=== PATIENT | female | born 1995 | race Caucasian/White ===

== ENCOUNTER 2018-02-05 13:30 | Observation (INO) | payer MEDICAID ==
[2018-02-05 14:15] LABS: Appearance SLIGHTLY CLOUDY (CLEAR); Bilirubin NEGATIVE (NEGATIVE); Blood NEGATIVE Ery/ul (0-5); Glucose NEGATIVE (NEGATIVE); Ketones NEGATIVE (NEGATIVE); Leukocyte Esterase TRACE (NEGATIVE); Nitrite NEGATIVE (NEGATIVE); Protein,Urine Dip TRACE (Negative); Specific Gravity 1.025 (1.005-1.025); Urobilinogen NORMAL mg/dL (0-1)
[2018-02-05 14:16] LABS: Bacteria FEW /HPF (NEGATIVE); Epithelial Cells MODERATE /HPF (FEW); Mucus MODERATE /HPF (NEGATIVE); RBC 0-2 /HPF (0-2)
[2018-02-05 14:28] LABS: Amphetamine,Urine NEGATIVE (NEGATIVE); Barbiturate,Urine NEGATIVE (NEGATIVE); Benzodiazepine,Urine NEGATIVE (NEGATIVE); Cocaine,Urine NEGATIVE (NEGATIVE); Methadone,Urine NEGATIVE (NEGATIVE); Opiate,Urine NEGATIVE (NEGATIVE); PCP,Urine NEGATIVE (NEGATIVE); THC,Urine NEGATIVE (NEGATIVE)
[2018-02-05 14:43] VITALS: PULSE 82
[2018-02-05 15:54] VITALS: BP 107/62
== END 2018-02-05 15:54 | disposition home or self-care (01) ==
LOC: OB 13:30
PROVIDERS: ADMIT Family Medicine; ATTEND Family Medicine
DX: Z34.83 Encounter for supervision of other normal pregnancy, third trimester (principal)
CPT/HCPCS: 80307; 81000; 87086; G0378

== ENCOUNTER 2018-03-06 10:58 | Observation (INO) | payer MEDICAID ==
[2018-03-06 11:41] VITALS: BP 114/69
[2018-03-06 12:38] LABS: Appearance CLEAR (CLEAR); Bilirubin NEGATIVE (NEGATIVE); Blood SMALL Ery/ul (0-5); Glucose NEGATIVE (NEGATIVE); Ketones NEGATIVE (NEGATIVE); Leukocyte Esterase NEGATIVE (NEGATIVE); Nitrite NEGATIVE (NEGATIVE); Protein,Urine Dip NEGATIVE (Negative); Specific Gravity 1.026 (1.005-1.025); Urobilinogen 2 mg/dL (0-1)
== END 2018-03-06 13:50 | disposition home or self-care (01) ==
LOC: OB 10:58
PROVIDERS: ADMIT Family Medicine; ATTEND Family Medicine
DX: Z34.83 Encounter for supervision of other normal pregnancy, third trimester (principal)
CPT/HCPCS: 81001; G0378

== ENCOUNTER 2018-03-14 15:41 | Observation (INO) | payer MEDICAID ==
[2018-03-14 16:34] LABS: Appearance SLIGHTLY CLOUDY (CLEAR); Bilirubin NEGATIVE (NEGATIVE); Blood NEGATIVE Ery/ul (0-5); Glucose NEGATIVE (NEGATIVE); Ketones NEGATIVE (NEGATIVE); Leukocyte Esterase NEGATIVE (NEGATIVE); Nitrite NEGATIVE (NEGATIVE); Protein,Urine Dip 30 (Negative); Specific Gravity 1.027 (1.005-1.025); Urobilinogen 2 mg/dL (0-1)
[2018-03-14 16:45] LABS: Hematocrit 32.3 % (35-47); Hemoglobin 10.5 gm/dl (12.0-16.0); Mean Cell Volume 91.5 fl (78-100); Mean Corpuscular Hemoglobin 29.7 pg (26-32); Mean Corpuscular Hgb Concent. 32.5 g/dl (32-36); Mean Platelet Volume 10.7 fl (6-9.5); Platelet Count 247 K/mm3 (150-450); Red Blood Count 3.53 M/mm3 (4.1-5.4); Red Cell Distribution Width 13.8 % (11.5-14.0); White Blood Count 10.1 K/mm3 (4.0-10.5)
[2018-03-14 16:46] LABS: Amphetamine,Urine NEGATIVE (NEGATIVE); Barbiturate,Urine NEGATIVE (NEGATIVE); Benzodiazepine,Urine NEGATIVE (NEGATIVE); Cocaine,Urine NEGATIVE (NEGATIVE); Methadone,Urine NEGATIVE (NEGATIVE); Opiate,Urine NEGATIVE (NEGATIVE); PCP,Urine NEGATIVE (NEGATIVE); THC,Urine NEGATIVE (NEGATIVE)
[2018-03-14 17:03] LABS: ALBUMIN 3.6 g/dL (3.5-5.0); ALKALINE PHOSPHATASE 143 U/L (38-126); ANION GAP 12.8 MEQ/L (5-15); BLOOD UREA NITROGEN 14 mg/dL (7-17); CHLORIDE 104 mmol/L (98-107); Calcium 8.9 mg/dL (8.4-10.2); Carbon Dioxide 24 mmol/L (22-30); Creatinine 1 0.69 mg/dL (0.52-1.04); Glucose 86 mg/dL (74-106); Potassium 4.4 mmol/L (3.5-5.1); SGOT/AST 15 U/L (14-36); SGPT/ALT 10 U/L (0-35); SODIUM 136 mmol/L (137-145); Total Protein 6.6 g/dL (6.3-8.2)
[2018-03-14] MEDS ORDERED: Lactated Ringers 1,000 ML IV ONE ×2 (17:27→17:38)
[2018-03-14 17:56] LABS: BAND 3 % (0.0-2.0); Eosinophil 1 % (0.00-3.0); Lymphocytes 18 % (24-44); Monocyte 2 % (0.0-12.0); Neutrophils 76 % (36.0-66.0); Platelet Estimate NORMAL (NORMAL); Total Cells Counted 100
[2018-03-14 20:58] VITALS: BP 106/61; PULSE 69
== END 2018-03-14 20:15 | disposition home or self-care (01) ==
LOC: OB 15:41
PROVIDERS: ADMIT Family Medicine; ATTEND Family Medicine
DX: Z34.83 Encounter for supervision of other normal pregnancy, third trimester (principal)
CPT/HCPCS: 36415; 80053; 80307; 81001; 82962; 85025; G0378

== ENCOUNTER 2018-03-24 12:08 | Inpatient (IN) | payer MEDICAID ==
[2018-03-24] MEDS ORDERED: PITOCIN 30 UNITS/ LR 500 ML 500 ML IV SCH (12:30)
[2018-03-24] MEDS ORDERED: XYLOCAINE 1% HCL 20 ML MDV IJ PRN (12:30)
[2018-03-24] MEDS ORDERED: Lactated Ringers 1,000 ML IV SCH (12:30)
[2018-03-24 15:06] LABS: Hematocrit 31.2 % (35-47); Mean Corpuscular Hgb Concent. 32.1 g/dl (32-36); Mean Platelet Volume 11.3 fl (6-9.5); Platelet Count 219 K/mm3 (150-450); Red Blood Count 3.43 M/mm3 (4.1-5.4); Red Cell Distribution Width 13.9 % (11.5-14.0); White Blood Count 9.4 K/mm3 (4.0-10.5)
[2018-03-24 15:07] LABS: Mean Corpuscular Hemoglobin 29.1 pg (26-32)
[2018-03-24 15:29] LABS: Lymphocytes 17 % (24-44); Neutrophils 83 % (36.0-66.0); Total Cells Counted 100; Toxic Granulation 1+
[2018-03-24 15:30] LABS: Platelet Estimate NORMAL (NORMAL)
[2018-03-24 16:01] LABS: Amphetamine,Urine NEGATIVE (NEGATIVE); Barbiturate,Urine NEGATIVE (NEGATIVE); Benzodiazepine,Urine NEGATIVE (NEGATIVE); Cocaine,Urine NEGATIVE (NEGATIVE); Methadone,Urine NEGATIVE (NEGATIVE); Opiate,Urine NEGATIVE (NEGATIVE); PCP,Urine NEGATIVE (NEGATIVE); THC,Urine NEGATIVE (NEGATIVE)
[2018-03-25] MEDS ORDERED: PROTONIX 40 MG IV IV ONE (01:08)
[2018-03-25] MEDS ORDERED: CORTISONE 1% CREAM TP PRN (01:37)
[2018-03-25] MEDS ORDERED: NORCO 5/325 MG PO PRN (01:37)
[2018-03-25] MEDS ORDERED: Dulcolax 10 MG SUPP PR PRN (01:37)
[2018-03-25] MEDS ORDERED: Dermoplast Spray TP PRN (01:37)
[2018-03-25] MEDS ORDERED: Mylicon 80MG PO PRN (01:37)
[2018-03-25] MEDS ORDERED: Anucort-HC SUPPOSITORY PR PRN (01:37)
[2018-03-25] MEDS ORDERED: LANSINOH 40 GM TOP PRN (01:37)
[2018-03-25] MEDS ORDERED: TORAdol 30 mg Injection IV ONE (01:48)
[2018-03-25] MEDS: TYLENOL EXTRA STRENGTH 500 MG PO PRN ×4 (02:40→23:27)
[2018-03-25] MEDS: MOTRIN 400 MG PO PRN ×3 (06:40→20:14)
[2018-03-25] MEDS: Colace 100 MG PO SCH ×2 (09:18→18:28)
[2018-03-25] MEDS: FERREX 150 PO SCH ×2 (09:18→18:29)
[2018-03-25] MEDS: Protonix 20MG Tablet PO SCH ×2 (12:56→12:58)
[2018-03-25 15:46] LABS: Hematocrit 30.5 % (35-47); Hemoglobin 9.7 gm/dl (12.0-16.0); Mean Cell Volume 91.6 fl (78-100); Mean Corpuscular Hemoglobin 29.1 pg (26-32); Mean Corpuscular Hgb Concent. 31.8 g/dl (32-36); Mean Platelet Volume 10.9 fl (6-9.5); Platelet Count 202 K/mm3 (150-450); Red Blood Count 3.33 M/mm3 (4.1-5.4); Red Cell Distribution Width 13.9 % (11.5-14.0); White Blood Count 11.2 K/mm3 (4.0-10.5)
[2018-03-25 17:50] LABS: ANISOCYTOSIS 1+; Eosinophil 1 % (0.00-3.0); Lymphocytes 12 % (24-44); Monocyte 5 % (0.0-12.0); Neutrophils 82 % (36.0-66.0); Platelet Estimate NORMAL (NORMAL); Polychromasia RARE; Total Cells Counted 100
[2018-03-26] MEDS: MOTRIN 400 MG PO PRN (03:01)
[2018-03-26] MEDS: TYLENOL EXTRA STRENGTH 500 MG PO PRN (06:58)
--- NOTE | 2018-03-26 08:57 | PCM.DS ---
Discharge Summary Date of Admission: 03/24/18 12:08 Admitting Physician: SYDNEE AC Primary Care Provider: SYDNEE AC Allergies Allergies Sulfa (Sulfonamide Antibiotics) Allergy (Verified 03/14/18 16:13) Hospital Summary - Hospital Course Hospital Course: patient delivered at term via with Dr Ac, no complications. is going well, well bonded with baby. - Vitals & Intake/Output Vital Signs: Vital Signs Temperature 97.9 F 03/26/18 02:00 Pulse Rate 75 03/26/18 02:00 Respiratory Rate 18 03/26/18 02:00 Blood Pressure 106/56 03/26/18 02:00 O2 Sat by Pulse Oximetry Intake & Output: Intake & Output 03/23/18 03/24/18 03/25/18 03/26/18 11:59 11:59 11:59 11:59 Weight 102.058 kg - Lab Result Diagrams: 03/25/18 15:42 Lab Results-Last 24 Hrs: Lab Results-Last 24 Hours 03/25/18 Range/Units 15:42 WBC 11.2 H (4.0-10.5) K/mm3 RBC 3.33 L (4.1-5.4) M/mm3 Hgb 9.7 L (12.0-16.0) gm/dl Hct 30.5 L (35-47) % MCV 91.6 (78-100) fl MCH 29.1 (26-32) pg MCHC 31.8 L (32-36) g/dl RDW 13.9 (11.5-14.0) % Plt Count 202 (150-450) K/mm3 MPV 10.9 H (6-9.5) fl Segmented Neutrophils 82 H (36.0-66.0) % Lymphocytes (Manual) 12 L (24-44) % Monocytes (Manual) 5 (0.0-12.0) % Eosinophils (Manual) 1 (0.00-3.0) % Platelet Estimate NORMAL (NORMAL) RBC Morphology ABNORMAL Polychromasia RARE Anisocytosis 1+ - Procedures and Test Procedures and Tests throughout Hospitalization: Therapy Orders & Screens 03/25/18 01:41 Standby STAT Comment: Diagnosis: LABOR Discharge Exam General Appearance: no apparent distress, alert Skin Exam: normal color, warm, dry Respiratory Exam: normal breath sounds, lungs clear, No respiratory distress Cardiovascular Exam: regular rate/rhythm, normal heart sounds Gastrointestinal/Abdomen Exam: soft, No tenderness, No mass Extremity Exam: normal inspection, normal range of motion Final Diagnosis/Problem List - Final Discharge Diagnosis/Problem (1) Vaginal delivery Current Visit: No Status: Acute - Discharge Disposition: Home, Self-Care Condition: Stable Prescriptions: Continue Ranitidine HCl [Zantac] 1 cap PO DAILY Follow up with: SYDNEE AC [Primary Care Provider] - 1 Week
[2018-03-26 11:45] VITALS: BP 110/75; PULSE 99
== END 2018-03-26 10:58 | disposition home or self-care (01) | DRG 807 ==
LOC: OBSVTOIN 12:08 → OB 12:08
PROVIDERS: ADMIT Family Medicine; ATTEND Family Medicine
PROC: 10E0XZZ Delivery of Products of Conception, External Approach (ICD-10-PCS; principal; 2018-03-25)
DX: O80 Encounter for full-term uncomplicated delivery (principal); Z37.0 Single live birth; Z3A.39 39 weeks gestation of pregnancy
CPT/HCPCS: 36415; 80307; 83986; 85025; 94799; G0378; J1885; J2590; A9270-GY

== ENCOUNTER 2020-01-05 13:19 | Observation (INO) | payer OTHER ==
[2020-01-05 13:51] LABS: Hematocrit 31.6 % (35-47); Mean Cell Volume 95.2 fl (78-100); Mean Corpuscular Hemoglobin 30.1 pg (26-32); Mean Corpuscular Hgb Concent. 31.6 g/dl (32-36); Mean Platelet Volume 10.7 fl (7.5-11.0); Platelet Count 230 K/mm3 (150-450); Red Blood Count 3.32 M/mm3 (4.1-5.4); White Blood Count 10.6 K/mm3 (4.0-10.5)
[2020-01-05 13:54] VITALS: BP 124/60; PULSE 74
[2020-01-05 13:55] LABS: Appearance SLIGHTLY CLOUDY (CLEAR); Bacteria RARE /HPF (NEGATIVE); Bilirubin NEGATIVE (NEGATIVE); Blood NEGATIVE Ery/ul (0-5); Epithelial Cells RARE /HPF (FEW); Glucose NEGATIVE (NEGATIVE); Ketones NEGATIVE (NEGATIVE); Leukocyte Esterase NEGATIVE (NEGATIVE); Mucus SLIGHT /HPF (NEGATIVE); Nitrite NEGATIVE (NEGATIVE); Protein,Urine Dip NEGATIVE (Negative); Specific Gravity 1.028 (1.005-1.025); Urobilinogen 4 mg/dL (0-1)
[2020-01-05 14:15] LABS: ALBUMIN 3.5 g/dL (3.5-5.0); ALKALINE PHOSPHATASE 69 U/L (38-126); ANION GAP 10.7 MEQ/L (5-15); BLOOD UREA NITROGEN 10 mg/dL (7-17); CHLORIDE 104 mmol/L (98-107); Calcium 8.9 mg/dL (8.4-10.2); Carbon Dioxide 24 mmol/L (22-30); Creatinine 1 0.64 mg/dL (0.52-1.04); Glucose 83 mg/dL (74-106); Potassium 4.2 mmol/L (3.5-5.1); SGOT/AST 15 U/L (14-36); SGPT/ALT 9 U/L (0-35); SODIUM 135 mmol/L (137-145); Total Protein 6.7 g/dL (6.3-8.2)
[2020-01-05 14:31] LABS: Amphetamine,Urine NEGATIVE (NEGATIVE); Barbiturate,Urine NEGATIVE (NEGATIVE); Benzodiazepine,Urine NEGATIVE (NEGATIVE); Cocaine,Urine NEGATIVE (NEGATIVE); Methadone,Urine NEGATIVE (NEGATIVE); Opiate,Urine NEGATIVE (NEGATIVE); PCP,Urine NEGATIVE (NEGATIVE); THC,Urine NEGATIVE (NEGATIVE)
[2020-01-05 14:40] LABS: BAND 1 % (0.0-2.0); Basophil 1 % (0.0-1.0); Lymphocytes 10 % (24-44); Monocyte 5 % (0.0-12.0); Neutrophils 83 % (36.0-66.0); Platelet Estimate NORMAL (NORMAL); Total Cells Counted 100; Toxic Granulation 1+
[2020-01-05] MEDS ORDERED: Lactated Ringers 1,000 ML IV ONE (14:56)
[2020-01-05] MEDS ORDERED: ROCEPHIN 1 Gm-D5w 50 ml Bag** 1 G/50 ML IVPB IV ONE (15:02)
--- NOTE | 2020-01-05 15:04 | XRAY ---
Indication: Abdomen pressure. Two-dimensional OB ultrasound performed. Comparison: December 08, 2019. Again there is a single viable intrauterine in cephalic presentation. heart rate 159 bpm. anatomy previously documented. Visualized stomach and bladder are unremarkable. Again posterior placenta without abruption/previa. Cervical length is 5.4 cm. BPD measures 6.13 cm corresponding to 24 weeks 6 days. HC measures 21.87 cm corresponding to 23 weeks 6 days. AC measures 19.69 cm corresponding to 24 weeks 3 days. FL measures 4.34 cm corresponding to 24 weeks 2 days. DANIEL is 12.5 cm. Impression: Again single viable intrauterine with mean gestational age 24 weeks 3 days. Normal progression of . No new or acute findings.
== END 2020-01-05 16:30 | disposition home or self-care (01) ==
LOC: OB 13:19
PROVIDERS: ADMIT Family Medicine; ATTEND Family Medicine
DX: Z34.82 Encounter for supervision of other normal pregnancy, second trimester (principal)
CPT/HCPCS: 36415; 76816; 80053; 80307; 81001; 85025; 87086; G0378; J0696

== ENCOUNTER 2020-03-01 22:05 | Observation (INO) | payer OTHER ==
[2020-03-01 22:40] LABS: Appearance CLEAR (CLEAR); Bilirubin NEGATIVE (NEGATIVE); Blood NEGATIVE Ery/ul (0-5); Epithelial Cells RARE /HPF (FEW); Glucose NEGATIVE (NEGATIVE); Hyaline Casts 0-2 /LPF (0-2); Ketones NEGATIVE (NEGATIVE); Leukocyte Esterase TRACE (NEGATIVE); Nitrite NEGATIVE (NEGATIVE); Protein,Urine Dip NEGATIVE (Negative); Specific Gravity 1.008 (1.005-1.025); Urobilinogen NEGATIVE mg/dL (0-1)
[2020-03-01 22:42] LABS: Hematocrit 31.3 % (35-47); Hemoglobin 9.8 gm/dl (12.0-16.0); Mean Cell Volume 92.3 fl (78-100); Mean Corpuscular Hemoglobin 28.9 pg (26-32); Mean Corpuscular Hgb Concent. 31.3 g/dl (32-36); Mean Platelet Volume 10.7 fl (7.5-11.0); Platelet Count 223 K/mm3 (150-450); Red Blood Count 3.39 M/mm3 (4.1-5.4); Red Cell Distribution Width 14.4 % (11.5-14.0); White Blood Count 10.6 K/mm3 (4.0-10.5)
[2020-03-01 22:57] LABS: ALBUMIN 3.3 g/dL (3.5-5.0); ALKALINE PHOSPHATASE 87 U/L (38-126); ANION GAP 7.9 MEQ/L (5-15); BLOOD UREA NITROGEN 10 mg/dL (7-17); CHLORIDE 106 mmol/L (98-107); Calcium 8.8 mg/dL (8.4-10.2); Carbon Dioxide 25 mmol/L (22-30); Creatinine 1 0.71 mg/dL (0.52-1.04); EST GLOMERULAR FILTRATION RATE > 60.0 ML/MIN; Glucose 88 mg/dL (74-106); Potassium 4.5 mmol/L (3.5-5.1); SGOT/AST 15 U/L (14-36); SGPT/ALT 9 U/L (0-35); SODIUM 135 mmol/L (137-145); Total Protein 6.4 g/dL (6.3-8.2); Uric Acid 3.7 mg/dL (2.6-6.0)
[2020-03-01 23:22] VITALS: O2SAT 98
[2020-03-01 23:49] LABS: Basophil 1 % (0.0-1.0); Eosinophil 1 % (0.00-3.0); Lymphocytes 23 % (24-44); Monocyte 7 % (0.0-12.0); Neutrophils 68 % (36.0-66.0); Platelet Estimate NORMAL (NORMAL); Total Cells Counted 100
[2020-03-02 08:04] VITALS: BP 98/53; PULSE 80
[2020-03-02] MEDS ORDERED: TYLENOL 325 MG PO PRN (08:12)
== END 2020-03-02 09:45 | disposition home or self-care (01) ==
LOC: OB 22:05
PROVIDERS: ADMIT Family Medicine; ATTEND Family Medicine
DX: Z34.83 Encounter for supervision of other normal pregnancy, third trimester (principal); Z3A.32 32 weeks gestation of pregnancy
CPT/HCPCS: 36415; 80053; 81001; 84550; 85025; G0378; A9270-GY

== ENCOUNTER 2020-03-22 12:43 | Observation (INO) | payer OTHER ==
[2020-03-22 13:43] VITALS: BP 115/65; PULSE 97; O2SAT 99
[2020-03-22 14:41] LABS: Hematocrit 31.9 % (35-47); Mean Cell Volume 92.2 fl (78-100); Mean Corpuscular Hemoglobin 28.9 pg (26-32); Mean Corpuscular Hgb Concent. 31.3 g/dl (32-36); Mean Platelet Volume 10.7 fl (7.5-11.0); Platelet Count 213 K/mm3 (150-450); Red Blood Count 3.46 M/mm3 (4.1-5.4); Red Cell Distribution Width 15.2 % (11.5-14.0); White Blood Count 8.4 K/mm3 (4.0-10.5)
[2020-03-22 14:50] LABS: ALBUMIN 3.2 g/dL (3.5-5.0); ALKALINE PHOSPHATASE 106 U/L (38-126); ANION GAP 9.5 MEQ/L (5-15); BLOOD UREA NITROGEN 9 mg/dL (7-17); CHLORIDE 105 mmol/L (98-107); Calcium 8.5 mg/dL (8.4-10.2); Carbon Dioxide 22 mmol/L (22-30); Creatinine 1 0.78 mg/dL (0.52-1.04); EST GLOMERULAR FILTRATION RATE > 60.0 ML/MIN; Glucose 106 mg/dL (74-106); Potassium 4.3 mmol/L (3.5-5.1); SGOT/AST 18 U/L (14-36); SGPT/ALT 11 U/L (0-35); SODIUM 132 mmol/L (137-145); Total Protein 6.2 g/dL (6.3-8.2)
[2020-03-22 15:15] LABS: Lymphocytes 14 % (24-44); Monocyte 7 % (0.0-12.0); Neutrophils 79 % (36.0-66.0); Platelet Estimate NORMAL (NORMAL); Total Cells Counted 100
[2020-03-22 15:16] LABS: Absolute Neutrophil Ct (ANC) 6.75 (1.4-6.9)
== END 2020-03-22 15:07 | disposition home or self-care (01) ==
LOC: OB 12:44
PROVIDERS: ADMIT Family Medicine; ATTEND Family Medicine
DX: Z34.83 Encounter for supervision of other normal pregnancy, third trimester (principal); Z3A.35 35 weeks gestation of pregnancy
CPT/HCPCS: 36415; 80053; 81003; 85025; G0378

== ENCOUNTER 2020-03-24 20:10 | Observation (INO) | payer OTHER ==
[2020-03-24 20:43] LABS: Appearance SLIGHTLY CLOUDY (CLEAR); Bilirubin NEGATIVE (NEGATIVE); Blood NEGATIVE Ery/ul (0-5); Epithelial Cells RARE /HPF (FEW); Glucose NEGATIVE (NEGATIVE); Ketones NEGATIVE (NEGATIVE); Leukocyte Esterase SMALL (NEGATIVE); Mucus SLIGHT /HPF (NEGATIVE); Nitrite NEGATIVE (NEGATIVE); Protein,Urine Dip 30 (Negative); RBC 0-2 /HPF (0-2); Specific Gravity 1.025 (1.005-1.025); Urobilinogen 4 mg/dL (0-1)
[2020-03-24] MEDS ORDERED: ROCEPHIN 1 Gm-D5w 50 ml Bag** 1 G/50 ML IVPB IV ONE (22:13)
[2020-03-24] MEDS ORDERED: Lactated Ringers 1,000 ML IV ONE ×2 (22:13→22:15)
[2020-03-24 23:29] VITALS: BP 118/67; PULSE 90; O2SAT 100
[2020-03-25] MEDS ORDERED: ROCEPHIN 1 Gm-D5w 50 ml Bag** 1 G/50 ML IVPB IV SCH (10:00)
== END 2020-03-24 23:55 | disposition home or self-care (01) ==
LOC: OB 20:10
PROVIDERS: ADMIT Family Medicine; ATTEND Family Medicine
DX: Z34.83 Encounter for supervision of other normal pregnancy, third trimester (principal); Z3A.35 35 weeks gestation of pregnancy
CPT/HCPCS: 81001; 84112; 87086; G0378; J0696

== ENCOUNTER 2020-04-12 02:10 | Inpatient (IN) | payer OTHER ==
[2020-04-12 13:05] LABS: Appearance SLIGHTLY CLOUDY (CLEAR); Bacteria RARE /HPF (NEGATIVE); Bilirubin NEGATIVE (NEGATIVE); Blood NEGATIVE Ery/ul (0-5); Epithelial Cells FEW /HPF (FEW); Glucose NEGATIVE (NEGATIVE); Hyaline Casts 0-2 /LPF (0-2); Ketones NEGATIVE (NEGATIVE); Leukocyte Esterase MODERATE (NEGATIVE); Mucus SLIGHT /HPF (NEGATIVE); Nitrite NEGATIVE (NEGATIVE); Protein,Urine Dip 30 (Negative); RBC 0-2 /HPF (0-2); Specific Gravity 1.024 (1.005-1.025); Urobilinogen NEGATIVE mg/dL (0-1)
[2020-04-12 13:14] LABS: Amphetamine,Urine NEGATIVE (NEGATIVE); Barbiturate,Urine NEGATIVE (NEGATIVE); Benzodiazepine,Urine NEGATIVE (NEGATIVE); Cocaine,Urine NEGATIVE (NEGATIVE); Methadone,Urine NEGATIVE (NEGATIVE); Opiate,Urine NEGATIVE (NEGATIVE); PCP,Urine NEGATIVE (NEGATIVE); THC,Urine NEGATIVE (NEGATIVE)
[2020-04-12 13:34] LABS: Hematocrit 32.8 % (35-47); Hemoglobin 10.1 gm/dl (12.0-16.0); Mean Cell Volume 91.9 fl (78-100); Mean Corpuscular Hemoglobin 28.3 pg (26-32); Mean Corpuscular Hgb Concent. 30.8 g/dl (32-36); Mean Platelet Volume 11.1 fl (7.5-11.0); Platelet Count 217 K/mm3 (150-450); Red Blood Count 3.57 M/mm3 (4.1-5.4); Red Cell Distribution Width 15.4 % (11.5-14.0); White Blood Count 9.3 K/mm3 (4.0-10.5)
[2020-04-12 13:44] LABS: ALBUMIN 3.3 g/dL (3.5-5.0); ALKALINE PHOSPHATASE 122 U/L (38-126); ANION GAP 7.7 MEQ/L (5-15); BLOOD UREA NITROGEN 13 mg/dL (7-17); CHLORIDE 107 mmol/L (98-107); Calcium 8.8 mg/dL (8.4-10.2); Carbon Dioxide 23 mmol/L (22-30); Creatinine 1 0.88 mg/dL (0.52-1.04); EST GLOMERULAR FILTRATION RATE > 60.0 ML/MIN; Glucose 98 mg/dL (74-106); Potassium 4.3 mmol/L (3.5-5.1); SGOT/AST 20 U/L (14-36); SGPT/ALT 13 U/L (0-35); SODIUM 133 mmol/L (137-145); Total Protein 6.2 g/dL (6.3-8.2); Uric Acid 5.2 mg/dL (2.6-6.0)
[2020-04-12 14:34] LABS: Eosinophil 1 % (0.00-3.0); Lymphocytes 23 % (24-44); Monocyte 2 % (0.0-12.0); Neutrophils 74 % (36.0-66.0); Total Cells Counted 100
[2020-04-12 14:40] LABS: Platelet Estimate NORMAL (NORMAL)
[2020-04-12 19:32] LABS: Creatinine, Urine Random 147.8 mg/dl (30-125)
[2020-04-12] MEDS ORDERED: Zofran 4 MG/2 ML VIAL IV PRN (20:21)
[2020-04-12] MEDS ORDERED: BRETHINE 1 MG/ML SQ PRN (20:21)
[2020-04-12] MEDS ORDERED: Nubain 10 MG/ML IV PRN (20:21)
[2020-04-12] MEDS ORDERED: XYLOCAINE 1% HCL 20 ML MDV IJ PRN (20:21)
[2020-04-12] MEDS ORDERED: PITOCIN 30 UNITS/ LR 500 ML 30 UNITS/500 ML IV.SOLN. IV SCH (20:30)
[2020-04-12] MEDS: TYLENOL EXTRA STRENGTH 500 MG PO PRN (21:15)
[2020-04-12] MEDS ORDERED: Cervidil 10 MG VAG SCH (22:00)
[2020-04-12] MEDS ORDERED: Tums EX 750 MG PO PRN (22:32)
[2020-04-12] MEDS: Pepcid 20 MG PO PRN (22:48)
[2020-04-13] MEDS ORDERED: Lactated Ringers 1,000 ML IV SCH
[2020-04-13] MEDS ORDERED: NORCO 5/325 MG PO PRN (03:42)
[2020-04-13] MEDS ORDERED: LANSINOH 40 GM TOP PRN (03:42)
[2020-04-13] MEDS ORDERED: Anucort-HC SUPPOSITORY PR PRN (03:42)
[2020-04-13] MEDS ORDERED: Mylicon 80MG PO PRN (03:42)
[2020-04-13] MEDS ORDERED: Dermoplast Spray TP PRN (03:42)
[2020-04-13] MEDS ORDERED: CORTISONE 1% CREAM TP PRN (03:42)
[2020-04-13] MEDS ORDERED: TUCKS TP PRN (03:42)
[2020-04-13] MEDS ORDERED: Dulcolax 10 MG SUPP PR PRN (03:42)
[2020-04-13] MEDS: MOTRIN 400 MG PO PRN ×3 (04:27→22:20)
[2020-04-13] MEDS ORDERED: PITOCIN 30 UNITS/ LR 500 ML 30 UNITS/500 ML IV.SOLN. IV SCH (10:00)
[2020-04-13] MEDS: FERREX 150 PO SCH (10:31)
[2020-04-13] MEDS: Pepcid 20 MG PO PRN (10:32)
[2020-04-13] MEDS: Colace 100 MG PO SCH ×2 (10:33→22:19)
[2020-04-13] MEDS: TYLENOL EXTRA STRENGTH 500 MG PO PRN ×2 (10:33→15:28)
[2020-04-13 17:15] LABS: Hematocrit 32.7 % (35-47); Mean Cell Volume 93.4 fl (78-100); Mean Corpuscular Hemoglobin 28.6 pg (26-32); Mean Corpuscular Hgb Concent. 30.6 g/dl (32-36); Mean Platelet Volume 11.4 fl (7.5-11.0); Platelet Count 190 K/mm3 (150-450); Red Cell Distribution Width 15.6 % (11.5-14.0); White Blood Count 12.9 K/mm3 (4.0-10.5)
[2020-04-13 21:29] LABS: Eosinophil 1 % (0.00-3.0); Lymphocytes 18 % (24-44); Monocyte 3 % (0.0-12.0); Neutrophils 78 % (36.0-66.0); Platelet Estimate NORMAL (NORMAL); Total Cells Counted 100
[2020-04-14] MEDS: TYLENOL EXTRA STRENGTH 500 MG PO PRN ×2 (00:54→09:27)
[2020-04-14] MEDS: MOTRIN 400 MG PO PRN ×2 (05:00→12:23)
[2020-04-14 05:35] VITALS: PULSE 76
--- NOTE | 2020-04-14 08:56 | PCM.DS ---
Discharge Summary Date of Admission: 04/13/20 02:10 Admitting Physician: SYDNEE AGUERO Primary Care Provider: SYDNEE AGUERO Allergies Allergies Fish Containing Products Allergy (Verified 04/12/20 13:10) Sulfa (Sulfonamide Antibiotics) Allergy (Verified 04/12/20 13:10) SEVERE VOMITING morphine Adverse Reaction (Verified 04/12/20 13:10) PT STATES SHE DOES NOT WANT GIVEN DURING DUE TO PREVIOUS REACTION Hospital Summary - Hospital Course Hospital Course: Pt is 24 yo female s/p ; came in at 37w 6d with elevated BP and sx of pre-eclampsia so was induced with cervadil. She delivered at 3 am at 38 weeks. Baby weighed 7lb 14oz, boy, with apgars of 9 at 1 min and 9 at 5 min. Her bleeding was and continues to be minimal. She had some pain yesterday but was feeling much better this morning and would like to discharge to home. Will schedule OB f/u as she is interested in BTL. BP have been wnl and her reflexes have been negligible with no clonus. No sx of pre-eclampsia. She will check her bp at home. - Vitals & Intake/Output Vital Signs: Vital Signs Temperature 97.9 F 04/14/20 04:00 Pulse Rate 76 04/14/20 05:00 Respiratory Rate 18 04/14/20 04:00 Blood Pressure 126/60 04/14/20 05:00 O2 Sat by Pulse Oximetry 99 04/14/20 04:00 Intake & Output: Intake & Output 04/11/20 04/12/20 04/13/20 04/14/20 11:59 11:59 11:59 11:59 Intake Total 910 1500 Balance 910 1500 Weight 114.305 kg - Lab Result Diagrams: 04/13/20 17:00 04/12/20 13:30 Lab Results-Last 24 Hrs: Lab Results-Last 24 Hours 04/13/20 Range/Units 17:00 WBC 12.9 H (4.0-10.5) K/mm3 RBC 3.50 L (4.1-5.4) M/mm3 Hgb 10.0 L (12.0-16.0) gm/dl Hct 32.7 L (35-47) % MCV 93.4 (78-100) fl MCH 28.6 (26-32) pg MCHC 30.6 L (32-36) g/dl RDW 15.6 H (11.5-14.0) % Plt Count 190 (150-450) K/mm3 MPV 11.4 H (7.5-11.0) fl Segmented Neutrophils 78 H (36.0-66.0) % Lymphocytes (Manual) 18 L (24-44) % Monocytes (Manual) 3 (0.0-12.0) % Eosinophils (Manual) 1 (0.00-3.0) % Platelet Estimate NORMAL (NORMAL) RBC Morphology NORMAL Micro Results-Entire Visit: Microbiology 04/12/20 12:45 Urine Culture - Final Clean Catch Midstream MIXED EMILY; 3 OR MORE TYPES. NO PREDOMINANT ORGANISM. NO FURTHER WORKUP. PLEASE RESUBMIT IF CLINICALLY INDICATED. - Procedures and Test Procedures and Tests throughout Hospitalization: Therapy Orders & Screens 04/13/20 03:27 Standby STAT Comment: Diagnosis: PIH Discharge Exam General Appearance: no apparent distress, alert Neurologic Exam: oriented x 3, cooperative Eye Exam: eyes nml inspection Ears, Nose, Throat Exam: moist mucous membranes Neck Exam: normal inspection, non-tender, No lymphadenopathy Respiratory Exam: normal breath sounds, lungs clear, No crackles/rales, No rhonchi, No wheezing Cardiovascular Exam: regular rate/rhythm, normal heart sounds, No murmur Gastrointestinal/Abdomen Exam: soft, normal bowel sounds, other (fundus firm inferior to umbilicus) Back Exam: normal inspection, No rash Extremity Exam: normal inspection, swelling (1+ pretibial edema bilat) Skin Exam: normal color, warm, dry, No rash Final Diagnosis/Problem List - Final Discharge Diagnosis/Problem (1) Vaginal delivery Current Visit: No Status: Acute Assessment & Plan: PPD #1, doing great, home today with baby. (2) Pre-eclampsia Current Visit: Yes Status: Acute Assessment & Plan: BP good, she will continue to watch them at home and report any elevated BP. Code(s): O14.90 - UNSPECIFIED PRE-ECLAMPSIA, UNSPECIFIED TRIMESTER (3) Anemia Current Visit: No Status: Acute Assessment & Plan: Home on oral iron. Code(s): D64.9 - ANEMIA, UNSPECIFIED - Discharge Disposition: Home, Self-Care Condition: Good Prescriptions: New Ibuprofen 600 mg PO QID PRN #35 tablet PRN Reason: Pain Continue Ferrous Sulfate 325 mg PO DAILY Famotidine 20 mg [Pepcid 20 MG] 20 mg PO DAILY Follow up with: SYDNEE AGUERO [Primary Care Provider] -
[2020-04-14] MEDS: FERREX 150 PO SCH (09:28)
[2020-04-14] MEDS: Colace 100 MG PO SCH (09:28)
[2020-04-14 09:56] VITALS: BP 108/55; O2SAT 98
== END 2020-04-14 12:50 | disposition home or self-care (01) | DRG 807 ==
LOC: OB 02:10 → OBSVTOIN 04-13 02:10
PROVIDERS: ADMIT Family Medicine; ATTEND Family Medicine
PROC: 10E0XZZ Delivery of Products of Conception, External Approach (ICD-10-PCS; principal; 2020-04-13)
DX: O14.94 Unspecified pre-eclampsia, complicating childbirth (principal); Z37.0 Single live birth; Z3A.38 38 weeks gestation of pregnancy; D64.9 Anemia, unspecified
CPT/HCPCS: 36415; 80053; 80307; 81001; 82570; 84156; 84550; 85025; 87086; 94799; G0378; J2590; A9270-GY

== ENCOUNTER 2020-05-25 06:24 | Day surgery (SDC) | payer OTHER ==
[2020-05-25] MEDS ORDERED: CEFAZOLIN 2 GM-D5W BAG** 2 GM/50 ML ML IV SCH (07:00)
[2020-05-25] MEDS ORDERED: Lactated Ringers 1,000 ML IV SCH (07:00)
[2020-05-25] MEDS ORDERED: Sensorcaine 0.25% 10 ML ONE (07:22)
[2020-05-25] MEDS ORDERED: Lactated Ringers 1,000 ML IV ONE (07:40)
[2020-05-25] MEDS ORDERED: CEFAZOLIN 2 GM-D5W BAG** 2 GM/50 ML ML IV ONE (07:40)
--- NOTE | 2020-05-25 09:04 | XRAY ---
Indication: Preop exam. Comparison: July 26, 2017. PA/lateral chest again demonstrates normal heart, lungs, and bony thorax.
[2020-05-25] MEDS ORDERED: SUBLIMAZE 100 MCG/2 ML ONE ×2 (09:41→10:42)
[2020-05-25] MEDS ORDERED: Zemuron 100 MG/10 ML ONE ×2 (09:41→10:04)
[2020-05-25] MEDS ORDERED: Versed 2 MG/2 ML Injection ONE (09:41)
[2020-05-25] MEDS ORDERED: DIPRIVAN 200 MG/20 ML IV ONE (09:41)
[2020-05-25] MEDS ORDERED: Decadron 4 MG INJ ONE (09:56)
[2020-05-25] MEDS ORDERED: Zofran 4 MG/2 ML VIAL ONE (10:10)
[2020-05-25] MEDS ORDERED: TORAdol 30 mg Injection ONE (10:10)
[2020-05-25] MEDS ORDERED: BRIDION 200MG/2ML IV ONE (10:10)
[2020-05-25 12:32] VITALS: O2SAT 100
[2020-05-25 12:50] VITALS: BP 123/83; PULSE 71
[2020-05-25 14:21] LABS: Appearance CLEAR (CLEAR); Bilirubin NEGATIVE (NEGATIVE); Blood MODERATE Ery/ul (0-5); Epithelial Cells RARE /HPF (FEW); Glucose NEGATIVE (NEGATIVE); Hyaline Casts 0-2 /LPF (0-2); Ketones NEGATIVE (NEGATIVE); Leukocyte Esterase NEGATIVE (NEGATIVE); Mucus SLIGHT /HPF (NEGATIVE); Nitrite NEGATIVE (NEGATIVE); Protein,Urine Dip NEGATIVE (Negative); Specific Gravity 1.017 (1.005-1.025); Urobilinogen NEGATIVE mg/dL (0-1)
--- NOTE | 2020-05-26 12:05 | OP ---
SURGERY DATE/TIME: 05/25/2020 0939 PREOPERATIVE DIAGNOSIS: 1. MULTIPARITY DESIRING TUBAL STERILIZATION. POSTOPERATIVE DIAGNOSIS: 1. MULTIPARITY DESIRING TUBAL STERILIZATION. PROCEDURE: 1. Laparoscopic tubal sterilization via Falope ring application as well as Kleppinger bilaterally. SURGEON: Isaiah Heredia D.O. SILVICULTURIST: nayeli Meza. ANESTHESIA: General. ESTIMATED BLOOD LOSS: Minimal. COMPLICATIONS: None. INDICATIONS: The risks, benefits, indications and alternatives of the procedure were reviewed with the patient prior to the procedure. The patient understood the risk of infection, bleeding, bowel injury, bladder injury, ureteral injury, , ectopic that could be associated with this procedure as well as pelvic infection and thromboembolic disorder. All other forms of control were discussed with the patient as well as the patient understood the risks of bleeding and menorrhagia associated with this procedure as well. DESCRIPTION OF PROCEDURE AND FINDINGS: From this point the patient was taken to the operating room, given general sedation, placed in dorsal lithotomy position. Prepped and draped in the usual sterile fashion. A weighted speculum was then placed in the patient's vagina and the anterior lip of the cervix was grasped with a single tooth tenaculum. From this point, a uterine manipulator was then inserted into the endocervical canal so we could manipulate the uterus. Attention was then turned to the patient's abdomen where a 5 mm incision was then made approximately 1 cm above the umbilicus where a 5 mm trocar and sleeve were advanced under direct visualization where pneumoperitoneum was obtained with 4 liters of CO2 gas. An additional incision was made approximately 2 cm above the symphysis pubis where an 8 mm incision was made and the 8 mm trocar and sleeve were advanced under direct visualization as well. A survey of the patient's abdomen and pelvis revealed her to have normal anatomy with no gross abnormalities that were noted. From this point, the uterus was then elevated with the uterine manipulator and the Falope ring applicator was loaded and was applied to the right isthmic-ampullary region where it was released and a knuckle of tube of approximately 1 cm was obtained. The Falope ring applicator was reloaded and again was displaced on the left side at this time at the isthmic-ampullary region and was done so. However, small segment was retained in a knuckle. So at this point, the bipolar Kleppinger was used to coagulate the tubes bilaterally just approximately 2 cm from the cornua region on either side. It was done so without complication. From this point, all instruments were then removed from the patient's abdominal region and the incisions were closed with 4-0 Monocryl suture. The patient tolerated the procedure well. The patient was taken out of dorsal lithotomy position and was taken to the recovery room in stable condition. All instruments and laps were accounted for X 2.
== END 2020-05-25 12:30 | disposition home or self-care (01) ==
LOC: SDC 06:24
PROVIDERS: ATTEND Obstetrics & Gynecology
DX: Z30.2 Encounter for sterilization (principal)
CPT/HCPCS: 71046; 81001; 84703; 87086; J0690; J1100; J1885; J2250; J2405; J2704; J3010